=== PATIENT | female | born 1970 | race Two or more races ===

== ENCOUNTER 2017-07-31 08:09 | Outpatient (CLI) | payer OTHER ==
[~2017-07-31 08:09] MED LIST: BENADRYL50 MG PO; DILTIAZEM ER60 MG; LIPITOR20 MG; MEDROL4 MG PO; PEPCID40 MG PO
== END 2017-07-31 08:19 | disposition home or self-care (01) ==
LOC: SONOGRAMA 08:09
DX: R10.9 Unspecified abdominal pain (principal)

== ENCOUNTER 2020-06-26 13:29 | Emergency (ER) | payer OTHER ==
[~2020-06-26] VITALS: Ht 157.5 cm; Wt 68.0 kg
[2020-06-26] MEDS ORDERED: TOPROL XL25 M1 PO (13:46)
== END 2020-06-26 19:28 | disposition home or self-care (01) ==
LOC: ER 13:29
DX: R07.89 Other chest pain (principal); F06.4 Anxiety disorder due to known physiological condition; R20.0 Anesthesia of skin

== ENCOUNTER 2021-01-25 00:10 | Emergency (ER) | payer OTHER ==
[~2021-01-25] VITALS: Ht 154.9 cm; Wt 64.9 kg
[~2021-01-25 00:10] MED LIST changes: +TOPROL XL25 M1 PO
[2021-01-25] MEDS ORDERED: CHOLEST OFF PL450 MG PO (00:24)
[2021-01-25] MEDS ORDERED: OMEPRAZOLE40 MG PO (00:24)
== END 2021-01-25 10:05 | disposition home or self-care (01) ==
LOC: ER 00:10
DX: R78.9 Finding of unspecified substance, not normally found in blood (principal)